=== PATIENT | female | born 1965 | race Caucasian/White ===

== ENCOUNTER 2018-08-15 08:55 | Outpatient (CLI) | payer MEDICAID | END 2018-08-15 23:59 | disposition home or self-care (01) | LOC: VAS 08:55 | PROVIDERS: ATTEND Nurse Practitioner | DX: R60.0 Localized edema (principal); E66.9 Obesity, unspecified; F17.200 Nicotine dependence, unspecified, uncomplicated; Z86.718 Personal history of other venous thrombosis and embolism | CPT/HCPCS: 93971 ==

== ENCOUNTER 2018-08-15 09:05 | Outpatient (CLI) | payer MEDICAID ==
[2018-08-15 10:25] LABS: ALANINE AMINOTRANSFERASE 40 U/L (12-78); ALBUMIN 3.4 G/DL (3.4-5.0); ALBUMIN/GLOBULIN RATIO 0.8 (1.1-1.5); ALKALINE PHOSPHATASE 140 IU/L (46-116); ANION GAP 8 (8-16); ASPARTATE AMINO TRANSFERASE 20 U/L (10-37); BILIRUBIN,TOTAL 0.8 MG/DL (0.1-1.0); BLOOD UREA NITROGEN 15 MG/DL (7-18); CHLORIDE 101 MMOL/L (99-107); CREATININE 0.75 MG/DL (0.40-0.90); GLUCOSE 109 MG/DL (70-104); POTASSIUM 4.1 MMOL/L (3.5-5.1); SODIUM 140 MMOL/L (135-145); TOTAL CARBON DIOXIDE 30.6 MMOL/L (24-32); TOTAL PROTEIN 7.8 G/DL (6.4-8.2); eGFR 81 ML/MIN
== END 2018-08-15 23:59 | disposition home or self-care (01) ==
LOC: LAB 09:05
PROVIDERS: ATTEND Family Medicine
DX: E11.9 Type 2 diabetes mellitus without complications (principal); F17.200 Nicotine dependence, unspecified, uncomplicated
CPT/HCPCS: 36415; 80053

== ENCOUNTER 2018-10-15 17:00 | Inpatient (IN) | payer MEDICAID ==
[~2018-10-15] VITALS: Ht 157.5 cm; Wt 168.2 kg
[2018-10-15 17:45] LABS: BASOPHILS % (AUTO) 0.2 % (0-1); EOSINOPHILS # (AUTO) 0.2 X10'3 (0-0.9); EOSINOPHILS % (AUTO) 1.8 % (0-6); HEMATOCRIT 40.9 % (35.0-45.0); HEMOGLOBIN 13.4 g/dl (12.0-16.0); LYMPHOCYTES # (AUTO) 1.1 X10'3 (1.1-4.8); LYMPHOCYTES % (AUTO) 9.7 % (21-51); MEAN CORPUSCULAR HEMOGLOBIN 28.9 PG (27.0-31.0); MEAN CORPUSCULAR HGB CONC 32.7 % (33.0-36.5); MEAN CORPUSCULAR VOLUME 88.4 FL (78-98); MEAN PLATELET VOLUME 7.8 FL (7.4-10.4); MONOCYTES # (AUTO) 0.5 X10'3 (0-0.9); MONOCYTES % (AUTO) 4.9 % (2-12); NEUTROPHILS # (AUTO) 9.2 X10'3 (1.8-7.7); NEUTROPHILS % (AUTO) 83.4 % (42-75); PLATELET COUNT 374 X10'3 (140-440); RED BLOOD COUNT 4.62 X10'6 (4.20-5.60); RED CELL DISTRIBUTION WIDTH 14.9 % (11.5-14.5)
[2018-10-15 18:10] LABS: ALANINE AMINOTRANSFERASE 36 U/L (12-78); ALBUMIN 3.3 G/DL (3.4-5.0); ALBUMIN/GLOBULIN RATIO 0.7 (1.1-1.5); ALKALINE PHOSPHATASE 136 IU/L (46-116); ANION GAP 10 (8-16); ASPARTATE AMINO TRANSFERASE 17 U/L (10-37); BILIRUBIN,TOTAL 0.4 MG/DL (0.1-1.0); BLOOD UREA NITROGEN 21 MG/DL (7-18); BUN/CREATININE RATIO 19.4 (6.6-38.0); CALCIUM 8.9 MG/DL (8.5-10.1); CHLORIDE 100 MMOL/L (99-107); CREATININE 1.08 MG/DL (0.40-0.90); GLUCOSE 139 MG/DL (70-104); POTASSIUM 4.6 MMOL/L (3.5-5.1); SODIUM 140 MMOL/L (135-145); TOTAL CARBON DIOXIDE 29.6 MMOL/L (24-32); TOTAL PROTEIN 7.9 G/DL (6.4-8.2); eGFR 53 ML/MIN
[2018-10-15] MEDS ORDERED: cefepime 1GM/NS ADD-VANTAGE 100 ML IV ONE (18:15)
[2018-10-15] MEDS ORDERED: normal saline 1000ML IV soln IV ONE (18:15)
[2018-10-15] MEDS ORDERED: LISI-600 PO (19:16)
[2018-10-15] MEDS ORDERED: FURO40TA4 PO (19:16)
[2018-10-15] MEDS ORDERED: ASPI-611 PO (19:16)
[2018-10-15] MEDS ORDERED: ATOR20TA PO (19:16)
[2018-10-15] MEDS ORDERED: POTA10TA19 PO (19:16)
[2018-10-15] MEDS ORDERED: BUPR150T8 PO (19:16)
[2018-10-15] MEDS ORDERED: CARV3.12 PO (19:16)
[2018-10-15] MEDS ORDERED: ACET-812 PO (19:16)
[2018-10-15] MEDS ORDERED: TRAZ-219 PO (19:16)
[2018-10-15] MEDS ORDERED: CLOP75TA15 PO (19:16)
[2018-10-15] MEDS ORDERED: HYDROmorphone inj. 0.5 MG/0.5 ML DISP.SYRIN IV ONE ×3 (19:20→21:20)
[2018-10-15] MEDS ORDERED: acetaminophen 325mg tablet PO PRN (22:45)
[2018-10-15] MEDS ORDERED: mag hydrox/Alum hydrox/simeth 30ml oral suspension PO PRN (22:45)
[2018-10-15] MEDS ORDERED: HYDROmorphone 1 mg/ml syringe IV PRN (22:45)
[2018-10-15] MEDS ORDERED: magnesium hydroxide 30ml (MOM) UD suspension PO PRN (22:45)
--- NOTE | 2018-10-15 23:30 | NUR ---
Received report from EDGE SANDERJONATHAN Aguillon. Patient to follow shortly.
--- NOTE | 2018-10-15 23:45 | NUR ---
Patient arrived to floor via gurney from ER. Patient A&Ox4, states that pain is under 2 after receiving pain medication in the ER for her LLE. Patient able to ambulate independently and took self to bathroom. Hat collected 475 yellow urine. Patient undressed and donned hospital gown, and returned to bed.
[2018-10-16] VITALS: BP 124/49
--- NOTE | 2018-10-16 00:45 | NUR ---
Called MD for 1) new order for repeat lactic acid - MD stated "no". 2) OK for patient to be on 2L via nc (as patient does at home) even it sats at 97%. 3)Ok to order a trapeze bar to help patient with movement in bed. 4)MD does not want on fluid restriction at this time.
--- NOTE | 2018-10-16 01:01 | NUR ---
Ren a room in a multi tenant home Addendum: 10/16/18 at 0102 by Mariely Fraser RN Amended: Links added.
--- NOTE | 2018-10-16 01:04 | NUR ---
Patient has a direct care worker that cleans her room, does laundry and takes her to appts and shopping Addendum: 10/16/18 at 0106 by Mariely Fraser RN Amended: Links added.
[2018-10-16] MEDS: cefTAZidime inj 2 GM in normal saline 100ml IV soln 100 ML IV SCH ×4 (01:46→23:44)
[2018-10-16 02:00] VITALS: BP 129/50
[2018-10-16] MEDS ORDERED: acetaminophen 325mg tablet PO PRN (02:00)
[2018-10-16 05:55] LABS: BASOPHILS % (AUTO) 0.2 % (0-1); EOSINOPHILS # (AUTO) 0.2 X10'3 (0-0.9); EOSINOPHILS % (AUTO) 1.8 % (0-6); HEMATOCRIT 35.8 % (35.0-45.0); HEMOGLOBIN 11.8 g/dl (12.0-16.0); LYMPHOCYTES # (AUTO) 1.1 X10'3 (1.1-4.8); LYMPHOCYTES % (AUTO) 10.7 % (21-51); MEAN CORPUSCULAR HEMOGLOBIN 29.3 PG (27.0-31.0); MEAN CORPUSCULAR HGB CONC 32.9 % (33.0-36.5); MEAN PLATELET VOLUME 8.1 FL (7.4-10.4); MONOCYTES # (AUTO) 0.7 X10'3 (0-0.9); MONOCYTES % (AUTO) 6.5 % (2-12); NEUTROPHILS # (AUTO) 8.3 X10'3 (1.8-7.7); NEUTROPHILS % (AUTO) 80.8 % (42-75); PLATELET COUNT 326 X10'3 (140-440); RED BLOOD COUNT 4.02 X10'6 (4.20-5.60); RED CELL DISTRIBUTION WIDTH 15.4 % (11.5-14.5); WHITE BLOOD COUNT 10.3 X10'3 (4.5-11.0)
[2018-10-16] MEDS: HYDROmorphone 1 mg/ml syringe IV PRN ×2 (06:00→10:07)
--- NOTE | 2018-10-16 06:00 | NUR ---
Dressing change to LLE d/t serous drainage leaking through original dressing. Patient tolerated fair.
--- NOTE | 2018-10-16 06:10 | NUR ---
Patient in room PCU 3023. I have received report from GAVIN CASTILLO and had the opportunity to ask questions and assume patient care.
[2018-10-16 06:18] LABS: ALANINE AMINOTRANSFERASE 30 U/L (12-78); ALBUMIN 2.7 G/DL (3.4-5.0); ALBUMIN/GLOBULIN RATIO 0.7 (1.1-1.5); ALKALINE PHOSPHATASE 110 IU/L (46-116); ANION GAP 7 (8-16); ASPARTATE AMINO TRANSFERASE 13 U/L (10-37); BILIRUBIN,TOTAL 0.5 MG/DL (0.1-1.0); BLOOD UREA NITROGEN 18 MG/DL (7-18); BUN/CREATININE RATIO 19.1 (6.6-38.0); CALCIUM 7.9 MG/DL (8.5-10.1); CHLORIDE 103 MMOL/L (99-107); CREATININE 0.94 MG/DL (0.40-0.90); GLUCOSE 112 MG/DL (70-104); POTASSIUM 4.7 MMOL/L (3.5-5.1); SODIUM 140 MMOL/L (135-145); TOTAL CARBON DIOXIDE 30.2 MMOL/L (24-32); TOTAL PROTEIN 6.6 G/DL (6.4-8.2); eGFR 62 ML/MIN
--- NOTE | 2018-10-16 06:35 | NUR ---
Problems reprioritized. Patient report given, questions answered & plan of care reviewed with Sera CASTILLO.
[2018-10-16 07:21] VITALS: BP 144/57
--- NOTE | 2018-10-16 07:45 | NUR ---
This was done with day shift JONATHAN Zamora. Following findings: Patient is reddened under pannus and in groin folds. Slight redness under bilateral breasts. Red in crack of bottom -roel cream provided. BLE have red, dry, tight skin . Wound to LLE. Addendum: 10/16/18 at 0749 by Mariely Fraser RN Amended: Links added.
[2018-10-16] MEDS: aspirin 81mg tab.chew PO SCH (09:17)
[2018-10-16] MEDS: carVEDilol 3.125mg tablet PO SCH ×2 (09:18→20:42)
[2018-10-16] MEDS: clopidogrel 75mg tablet PO SCH (09:18)
[2018-10-16] MEDS: potassium Cl 20 mEq SR tablet PO SCH ×2 (09:18→20:42)
[2018-10-16] MEDS: lisinopril 10 MG tablet PO SCH (09:18)
[2018-10-16] MEDS: furosemide 40mg tablet PO SCH ×2 (09:18→20:00)
[2018-10-16] MEDS: atorvastatin 20mg tablet PO SCH (09:18)
[2018-10-16] MEDS: buPROPion SR 150mg tablet PO SCH (09:19)
[2018-10-16] MEDS: heparin, porcine 5000 units/ml vial SQ SCH ×2 (09:19→20:44)
[2018-10-16] MEDS ORDERED: pneumococcal 23-VAL P-sac vacc 25 mcg/0.5ml vial IMVAC ONE (10:00)
--- NOTE | 2018-10-16 10:30 | NUR ---
SPOKE TO TOBI CASTILLO AT [facility] [phone]. I WILL PLACE ABD AND KERJENNIX ON WOUND WHILE WE AWAIT WOUND CARE ORDERS FROM DR. CORTES WHICH WILL BE FAXED OVER. 10/17/18
[2018-10-16] MEDS: ondansetron/PF 4mg/2ml inj IV PRN ×2 (12:43→21:25)
[2018-10-16] MEDS: nystatin 15 GM powder TP SCH ×2 (12:43→20:50)
[2018-10-16] MEDS ORDERED: HYDROcodone/acetaminophen 10/325mg tab PO PRN (13:00)
--- NOTE | 2018-10-16 13:00 | NUR ---
SPOKE TO JULI IN MRI. PATIENT WILL NOT BE ABLE TO GET AN MRI IN OUR FACILITY BECAUSE HER WEIGHT IS OVER CAPACITY,JULI WILL INFORM
[2018-10-16 15:00] VITALS: BP 139/46
[2018-10-16] MEDS ORDERED: iohexol 300mg/ml 100ml inj. ONE (17:22)
--- NOTE | 2018-10-16 18:21 | NUR ---
Problems reprioritized. Patient report given, MILES AQUINO RN questions answered & plan of care reviewed with .
--- NOTE | 2018-10-16 18:30 | NUR ---
Patient in room PCU 3023. I have received report from MAYO CASTILLO and had the opportunity to ask questions and assume patient care. PATIENT OUT FOR CT OF LEFT LE.
[2018-10-16 19:00] VITALS: BP 155/77
--- NOTE | 2018-10-16 19:00 | NUR ---
PATIENT CAME BACK TO ROOM 3023A AFTER CT OF THE LEFT LE WAS DONE. PLACED COMFORTABLE IN BED. DINNER SERVED.
[2018-10-16] MEDS: lactobacillus rhamnosus 10,000 MMU CELLS/CAPSULE PO SCH (20:42)
[2018-10-16] MEDS: traZODone 50mg tablet PO SCH (20:43)
--- NOTE | 2018-10-16 22:30 | NUR ---
NO CHANGE TO PREVIOUS ASSESSMENT DONE BT MILES AQUINO ON PCU. Addendum: 10/17/18 at 0615 by Silvestre Ley RN Amended: Links added.
[2018-10-16 23:00] VITALS: BP 141/62
--- NOTE | 2018-10-16 23:25 | NUR ---
PATIENT TRANSFERRED TO [facility] ROOM 345A WITH HER BELONGINGS IN A BED WITH 2 STAFF AFTER REPORT WAS GIVEN TO GRISEL CASTILLO.
[2018-10-17] VITALS: BP 133/50
[2018-10-17 04:58] LABS: ALANINE AMINOTRANSFERASE 29 U/L (12-78); ALBUMIN 2.7 G/DL (3.4-5.0); ALBUMIN/GLOBULIN RATIO 0.6 (1.1-1.5); ALKALINE PHOSPHATASE 113 IU/L (46-116); ANION GAP 6 (8-16); ASPARTATE AMINO TRANSFERASE 13 U/L (10-37); BILIRUBIN,TOTAL 0.6 MG/DL (0.1-1.0); BLOOD UREA NITROGEN 13 MG/DL (7-18); BUN/CREATININE RATIO 14.9 (6.6-38.0); CALCIUM 8.2 MG/DL (8.5-10.1); CHLORIDE 102 MMOL/L (99-107); CREATININE 0.87 MG/DL (0.40-0.90); GLUCOSE 120 MG/DL (70-104); POTASSIUM 4.7 MMOL/L (3.5-5.1); SODIUM 137 MMOL/L (135-145); TOTAL CARBON DIOXIDE 28.6 MMOL/L (24-32); TOTAL PROTEIN 6.9 G/DL (6.4-8.2); eGFR 68 ML/MIN
--- NOTE | 2018-10-17 06:55 | NUR ---
Problems reprioritized. Patient report given, questions answered & plan of care reviewed with THOMAS. Addendum: 10/17/18 at 0656 by Silvestre Ley RN Amended: Links added.
[2018-10-17 07:30] VITALS: BP 163/64
[2018-10-17] MEDS: potassium Cl 20 mEq SR tablet PO SCH ×2 (08:26→20:15)
[2018-10-17] MEDS: lactobacillus rhamnosus 10,000 MMU CELLS/CAPSULE PO SCH ×2 (08:26→20:16)
[2018-10-17] MEDS: furosemide 40mg tablet PO SCH ×2 (08:26→20:00)
[2018-10-17] MEDS: aspirin 81mg tab.chew PO SCH (08:26)
[2018-10-17] MEDS: clopidogrel 75mg tablet PO SCH (08:26)
[2018-10-17] MEDS: lisinopril 10 MG tablet PO SCH (08:26)
[2018-10-17] MEDS: atorvastatin 20mg tablet PO SCH (08:26)
[2018-10-17] MEDS: buPROPion SR 150mg tablet PO SCH (08:26)
[2018-10-17] MEDS: carVEDilol 3.125mg tablet PO SCH ×2 (08:26→20:16)
[2018-10-17] MEDS: heparin, porcine 5000 units/ml vial SQ SCH ×2 (08:27→20:16)
[2018-10-17] MEDS: nystatin 15 GM powder TP SCH ×3 (08:27→21:06)
[2018-10-17] MEDS: cefTAZidime inj 2 GM in normal saline 100ml IV soln 100 ML IV SCH ×2 (08:28→16:10)
--- NOTE | 2018-10-17 12:07 | NUR ---
Extended PIV inserted to the right upper arm cephalic vein x 3 attempts using ultrasound. Deep Veins and hard to stabilize after access. Radha well Addendum: 10/17/18 at 1208 by Daysi Junior RN Amended: Links added.
[2018-10-17 12:24] VITALS: BP 132/64
--- NOTE | 2018-10-17 18:01 | NUR ---
Wound care orders from [facility] approved by Dr Roa.
--- NOTE | 2018-10-17 18:38 | NUR ---
Problems reprioritized. Patient report given, questions answered & plan of care reviewed with Yecenia RN.
[2018-10-17] MEDS: HYDROmorphone 1 mg/ml syringe IV PRN ×2 (19:26→22:47)
[2018-10-17 19:30] VITALS: BP 144/48
--- NOTE | 2018-10-17 19:30 | NUR ---
pt reports the swelling to her lower legs has decreased; pt states she does not want want her lasix tonight Addendum: 10/18/18 at 0018 by Corina Haynes RN Amended: Links added.
[2018-10-17] MEDS: ondansetron/PF 4mg/2ml inj IV PRN (21:00)
[2018-10-17] MEDS: traZODone 50mg tablet PO SCH (21:34)
[2018-10-18] VITALS: BP 129/52
[2018-10-18] MEDS: cefTAZidime inj 2 GM in normal saline 100ml IV soln 100 ML IV SCH ×2 (00:28→08:02)
[2018-10-18] MEDS: HYDROmorphone 1 mg/ml syringe IV PRN ×2 (03:43→08:18)
--- NOTE | 2018-10-18 05:53 | NUR ---
checked q1hr; slept at intervals with resp even and unlabored; SOB when assisting to bathroom; pt medicated with zofran x2 this shift (pt reports the dilaudid has been causing the nausea); no further changes from earlier notes
[2018-10-18 05:58] LABS: ALANINE AMINOTRANSFERASE 29 U/L (12-78); ALBUMIN 2.7 G/DL (3.4-5.0); ALBUMIN/GLOBULIN RATIO 0.7 (1.1-1.5); ALKALINE PHOSPHATASE 110 IU/L (46-116); ANION GAP 8 (8-16); ASPARTATE AMINO TRANSFERASE 15 U/L (10-37); BILIRUBIN,TOTAL 0.4 MG/DL (0.1-1.0); BLOOD UREA NITROGEN 13 MG/DL (7-18); BUN/CREATININE RATIO 14.9 (6.6-38.0); CALCIUM 8.2 MG/DL (8.5-10.1); CHLORIDE 100 MMOL/L (99-107); CREATININE 0.87 MG/DL (0.40-0.90); GLUCOSE 122 MG/DL (70-104); POTASSIUM 4.6 MMOL/L (3.5-5.1); SODIUM 137 MMOL/L (135-145); TOTAL CARBON DIOXIDE 29.4 MMOL/L (24-32); TOTAL PROTEIN 6.7 G/DL (6.4-8.2); eGFR 68 ML/MIN
--- NOTE | 2018-10-18 06:10 | NUR ---
Patient in room [facility] 341. I have received report from Pat RN and had the opportunity to ask questions and assume patient care.
[2018-10-18 07:54] VITALS: BP 120/54
[2018-10-18] MEDS: potassium Cl 20 mEq SR tablet PO SCH (08:02)
[2018-10-18] MEDS: clopidogrel 75mg tablet PO SCH (08:02)
[2018-10-18] MEDS: furosemide 40mg tablet PO SCH (08:02)
[2018-10-18] MEDS: lactobacillus rhamnosus 10,000 MMU CELLS/CAPSULE PO SCH (08:02)
[2018-10-18] MEDS: atorvastatin 20mg tablet PO SCH (08:03)
[2018-10-18] MEDS: heparin, porcine 5000 units/ml vial SQ SCH (08:03)
[2018-10-18] MEDS: nystatin 15 GM powder TP SCH ×2 (08:03→12:49)
[2018-10-18] MEDS: aspirin 81mg tab.chew PO SCH (08:03)
[2018-10-18] MEDS: buPROPion SR 150mg tablet PO SCH (08:03)
[2018-10-18] MEDS: carVEDilol 3.125mg tablet PO SCH (08:03)
[2018-10-18] MEDS: lisinopril 10 MG tablet PO SCH (08:03)
[2018-10-18] MEDS ORDERED: ALBU8.5H8 INH (08:16)
[2018-10-18] MEDS ORDERED: albuterol 2.5 MG/3 ML nebule NEB PRN (09:40)
[2018-10-18 11:40] VITALS: BP 136/57
[2018-10-18] MEDS ORDERED: cefepime 2g/NS 100ml ADVANTAGE 100 ML IV SCH (12:05)
[2018-10-18] MEDS ORDERED: HYDR-3972 PO (12:09)
[2018-10-18] MEDS ORDERED: CEFE2FRO IV (12:09)
--- NOTE | 2018-10-18 12:28 | NUR ---
Patient refusing to have picture taken to left leg on discharge due to left leg dressing has already been changed prior to discharge orders. Patient states that it is too painful to have dressing changed again for picture.
--- NOTE | 2018-10-18 15:05 | NUR ---
Discharge paperwork gone over with pt. Rx delivered to pt at bedside via [facility]. Pt awaiting ride to take pt home.
== END 2018-10-18 15:30 | disposition home health service (06) | DRG 383 ==
LOC: ER 17:00 → ED HOLD 22:45 → EDBEDREQ 23:10 → PCU 3S 23:30 → SUR 3N 10-16 23:36
PROVIDERS: ADMIT Internal Medicine; ATTEND Internal Medicine
PROC: 3E0234Z Introduction of Serum, Toxoid and Vaccine into Muscle, Percutaneous Approach (ICD-10-PCS; principal; 2018-10-16)
DX: L03.116 Cellulitis of left lower limb (principal); E66.01 Morbid (severe) obesity due to excess calories; B96.5 Pseudomonas (aeruginosa) (mallei) (pseudomallei) as the cause of diseases classified elsewhere; Z68.44 Body mass index [BMI] 60.0-69.9, adult; E78.00 Pure hypercholesterolemia, unspecified; E78.5 Hyperlipidemia, unspecified; F17.210 Nicotine dependence, cigarettes, uncomplicated; G47.33 Obstructive sleep apnea (adult) (pediatric); I10 Essential (primary) hypertension; I25.10 Atherosclerotic heart disease of native coronary artery without angina pectoris; I87.2 Venous insufficiency (chronic) (peripheral); I87.002 Postthrombotic syndrome without complications of left lower extremity; L97.929 Non-pressure chronic ulcer of unspecified part of left lower leg with unspecified severity; F32.9 Major depressive disorder, single episode, unspecified; R74.0 Nonspecific elevation of levels of transaminase and lactic acid dehydrogenase [LDH]; I87.8 Other specified disorders of veins; Z23 Encounter for immunization; Z86.718 Personal history of other venous thrombosis and embolism; Z88.5 Allergy status to narcotic agent; Z79.899 Other long term (current) drug therapy; Z79.82 Long term (current) use of aspirin
CPT/HCPCS: 36415; 71045; 73701; 80053; 83605; 83735; 84145; 85025; 87040; 87070; 90732; 93005; 93306; 96365; 96375; 96376; 97161; 97530; 99285; G0378; J0692; J0713; J1170; J1644; J2405; J7030; Q9967

== ENCOUNTER 2020-06-24 18:47 | Emergency (ER) | payer MEDICAID ==
[~2020-06-24] VITALS: Ht 157.5 cm; Wt 168.0 kg
[~2020-06-24 18:47] MED LIST: ALBU8.5H8 INH; APIX5TAB3 PO; ASPI-611 PO; ATOR20TA PO; BUPR150T8 PO; CARV3.12 PO; CLOP75TA15 PO; FURO40TA4 PO; LISI40TA4 PO; POTA10TA19 PO; TRAZ-256 PO
[2020-06-24 19:06] VITALS: BP 149/73
== END 2020-06-24 20:09 | disposition home or self-care (01) ==
LOC: ER 18:47
DX: S30.814A Abrasion of vagina and vulva, initial encounter (principal); R10.2 Pelvic and perineal pain; I25.10 Atherosclerotic heart disease of native coronary artery without angina pectoris; E78.00 Pure hypercholesterolemia, unspecified; I10 Essential (primary) hypertension; F32.9 Major depressive disorder, single episode, unspecified; Z88.5 Allergy status to narcotic agent; Z79.82 Long term (current) use of aspirin; Z79.899 Other long term (current) drug therapy; X58.XXXA Exposure to other specified factors, initial encounter; Y93.89 Activity, other specified; Y92.89 Other specified places as the place of occurrence of the external cause; Y99.8 Other external cause status
CPT/HCPCS: 99283